=== PATIENT | female | born 1955 | race Caucasian/White ===

== ENCOUNTER 2020-04-10 09:17 | Emergency (ER) | payer BC, SELFPAY ==
[2020-04-10 09:27] VITALS: BP 175/94; PULSE 80; RESP 16; TEMP 36.8; O2SAT 99; BMI 22.4
--- NOTE | 2020-04-10 09:30 | XR_ITS ---
PROCEDURE: XR LUMBAR SPINE 2-3V CLINICAL INDICATION: pain COMPARISON: No exams were available for comparison FINDINGS: There is minimal thoracolumbar curvature convex right. Endplate spurring is present at L3-L4 and L5. No fracture or dislocation. No lytic or blastic change. Other findings:None. IMPRESSION: No acute findings. Mild degenerative changes Dictated by: Aldo Smallwood MD 04/10/2020 10:12 Aldo Smallwood MD in [place] 04/10/2020 10:12
[2020-04-10 09:32] VITALS: BP 175/94; PULSE 80; RESP 16; TEMP 36.8; O2SAT 99; BMI 22.4
--- NOTE | 2020-04-10 09:51 | HMH.EDUTC ---
[facility] [place] Impression: Low back pain Qualifiers: Chronicity: unspecified Back pain laterality: unspecified Sciatica presence: without sciatica Qualified Code(s): M54.5 - Low back pain Disposition: Home, Self-Care Condition on Discharge: Good Instructions: Low Back Pain (Alternative Therapy), Cyclobenzaprine, Etodolac Additional Instructions: Take medication as prescribed *Etodolac hany 6 hours with meal as needed for pain/inflammation *Remember you had a Toradol shot in the clinic today, which is similar to Motrin and Etodolac *Not additional anti-inflammatory like motrin, aleve, advil or ibuprofen with the above amount of Etodolac. You can still take Tylenol every 4 hours as needed if you need something else for pain watch stools for signs of bleeding ulcers *Ice 20 minutes every 2 hours for the first 48 hours after the initial injury followed by moist heat every 20 minutes 3-4 times a day to affected area *Muscle relaxer every 8 hours as needed for muscle spasms but remember, it WILL cause drowsiness You cannot take it and drive, operate machinery or care for small children. *Keep this area active, no movement leads to more stiffness, However take it easy and avoid heavy lifting pushing or pulling *Follow up with you family doctor if no improvement for further treatment Prescriptions: Etodolac [Etodolac 200mg Cap*] 200 mg PO Q6H PRN #20 cap PRN Reason: Moderate Pain Transmission Status: Received by [id number] Cyclobenzaprine HCl [Flexeril 10mg tablet] 10 mg PO TID PRN #15 tab PRN Reason: Muscle Spasm Transmission Status: Received by [id number] Referrals: Maryjane Escobedo [Primary Care Provider] - As needed Forms: Work/School Release Time of Disposition: 10:16 Medical Decision Making - Coleman Inquiry Pt receiving controlled substance: No Coleman was queried for this patient: No Vital Signs: 04/10/20 09:27 04/10/20 09:32 04/10/20 10:32 Temperature 98.2 F 98.2 F 98.2 F Temperature Source Oral Oral Oral Pulse Rate 80 Pulse Rate [Right Brachial] 80 80 Respiratory Rate 16 16 16 Blood Pressure 175/94 H Blood Pressure [Right Arm] 175/94 H 175/94 H Blood Pressure Mean [Right Arm] 121 121 Blood Pressure Source Automatic Cuff Blood Pressure Source [Right Arm] Automatic Cuff Blood Pressure Position Sitting Blood Pressure Position [Right Arm] Sitting Sitting 02 Sat by Pulse Oximetry 99 99 Oxygen Delivery Method Room Air Room Air Room Air Orders (Tests/Meds): ED MEDICATIONS Discontinued Medications Generic Name Dose Route Start Last Admin Trade Name rAies PRN Reason Stop Dose Admin Ketorolac Tromethamine 60 mg 04/10/20 10:04 04/10/20 10:19 Ketorolac 60mg/2ml Vial IM 04/10/20 10:05 60 mg ONCE ONE Administration - Radiology Data #1 Image(s): L-Spine Image Reviewed: Yes I reviewed the patient's radiology image w/the ED provider No acute finding [facility] [place] - General Stated complaint: back pain no ao Time Seen by Provider: 04/10/20 09:51 Mode of Arrival: Ambulatory Source of Information: Patient Limitations: No Limitations Description of Symptoms (Recalled from Triage Doc. by RN): Back pain HEENT Symptoms (Recalled from RN notes): No Resp Symptoms (Recalled from RN notes): No Skin Symptoms (Recalled from RN notes): No MS Symptoms (Recalled from RN notes): Yes Functional Status (Recalled from RN notes): wnl - History of Present Illness Provider Complaint: Patient states that she was at home yesterday and bent over and felt her back go out States that she was unable to straighten up for a little bit then when she did she was having pain in her lower back area and spasms States that she took some over the counter medication and thought it would be better this morning but when she got up she was still having pain so she come in to get it checked Denies loss of control of bowel or bladder - Related Data Previous Rx's Medication Instr
[2020-04-10 10:32] VITALS: BP 175/94; PULSE 80; RESP 16; TEMP 36.8; O2SAT 99
== END 2020-04-10 10:33 | disposition home or self-care (01) ==
PROVIDERS: Emergency Provider Nurse Practitioner; PCP Family Medicine
DX: M54.5 Low back pain (principal)
CPT/HCPCS: 72100; 96372; 99202